=== PATIENT | male | born 1995 | race African-American/Black ===

== ENCOUNTER 2019-09-11 06:14 | Emergency (ER) | payer SELFPAY ==
[2019-09-11 06:16] VITALS: BP 180/107; PULSE 83; RESP 16; TEMP 37.1; O2SAT 99
--- NOTE | 2019-09-11 06:46 | ED.GENADULT ---
HPI - General Adult General Chief complaint: Ear Stated complaint: sore throat/ ear pain/ headache Time Seen by Provider: 09/11/19 06:20 History of Present Illness HPI narrative: Patient is a 23 y/o male complaining of sore pain and ear pain for about 6 days. He sore throat pain is more on the right side and rates it as 7/10. The sorethroat is worsened by swallowing. He took Tylenol which did not provide much relief. He denies any fever or cough. MD complaint: sorethroat Related Data Allergies Allergy/AdvReac Type Severity Reaction Status Date / Time No Known Allergies Allergy Unverified 07/10/19 09:45 Review of Systems Constitutional: Constitutional: Denies chills, Denies fever(s), Denies headache(s) and Denies weakness Eyes: Eyes: Denies blurry vision ENT: Reports headache(s), Denies neck pain and Reports sore throat Cardiovascular: Cardiovascular: Denies chest pain and Denies dyspnea Respiratory: Respiratory: Denies cough and Denies dyspnea Gastrointestinal: Gastrointestinal: Denies abdominal pain, Denies diarrhea, Denies nausea and Denies vomiting Genitourinary: Genitourinary: Denies hematuria and Denies dysuria Musculoskeletal: Musculoskeletal: Denies back pain and Denies neck pain Neurologic: Denies headache(s) and Denies weakness [facility] Social History Social History Smoking status: Never smoker Gender identity (if verbalized by the patient): Male Exam Const: General: no acute distress and well developed Orientation/consciousness: oriented to person, oriented to place, oriented to time and patient oriented x3 HENMT: Head: normocephalic Ears: external ears normal and TM's normal bilaterally General nose exam: Normal external nose present Throat: posterior oropharynx abnormal (posterior pharyngeal erythema) and no peritonsillar masses Eyes: General: appearance normal, both eyes and all related structures Conjunctivae: conjunctivae normal Neck: Neck: normal visual inspection and full ROM Chest: Chest palpation & inspection: normal inspection of the chest and no tenderness Resp: Effort & Inspection: normal respiratory effort Auscultation: clear to auscultation bilaterally Cardio: Rate: regular rate Rhythm: regular rhythm GI: GI Palp: No abdominal tenderness and Yes Soft to palpation Skin: General skin exam: normal color and turgor normal Neuro: General: oriented to person, oriented to place, oriented to time and patient oriented x3 Cognition (Neuro): normal cognition Extrem: General: normal to inspection, full ROM and no pedal edema Psych: Appearance: grossly normal Mental Status: mental status grossly normal Affect: normal affect Course Reevaluation(s) Reevaluation #1: Advised patient to have labs done. Patient refused. Also offered patient meds for HTN, but patient refused. He states that he will follow up with a docor. Date: 09/11/19 Time: 06:55 Vital Signs Vital signs: Vital Signs Temperature 37.1 C 09/11/19 06:16 Pulse Rate 83 09/11/19 06:16 Respiratory Rate 16 09/11/19 06:16 Blood Pressure 180/107 H 09/11/19 06:16 Pulse Oximetry 99 09/11/19 06:16 Temperature 37.1 C 09/11/19 06:16 Pulse Rate 83 09/11/19 06:16 Respiratory Rate 16 09/11/19 06:16 Blood Pressure 180/107 H 09/11/19 06:16 Pulse Oximetry 99 09/11/19 06:16 Medical Decision Making Vital Signs Vital Signs: Vital Signs Temperature 37.1 C 09/11/19 06:16 Pulse Rate 83 09/11/19 06:16 Respiratory Rate 16 09/11/19 06:16 Blood Pressure 180/107 H 09/11/19 06:16 Pulse Oximetry 99 09/11/19 06:16 Temperature 37.1 C 09/11/19 06:16 Pulse Rate 83 09/11/19 06:16 Respiratory Rate 16 09/11/19 06:16 Blood Pressure 180/107 H 09/11/19 06:16 Pulse Oximetry 99 09/11/19 06:16 Lab Data Labs: Influenza A Screen Negative Reference Range: Negative Influenza B Screen Negative Refer
[2019-09-11 07:15] VITALS: BP 173/104; PULSE 85; RESP 16; TEMP 36.7; O2SAT 100
== END 2019-09-11 07:18 | disposition home or self-care (01) ==
PROVIDERS: Emergency Provider Emergency Medicine
DX: J02.0 Streptococcal pharyngitis (principal); I10 Essential (primary) hypertension
CPT/HCPCS: 87804; 87880; 99283

== ENCOUNTER 2021-05-04 22:00 | Emergency (ER) | payer SELFPAY ==
[2021-05-04 22:26] VITALS: BP 186/87; PULSE 64; RESP 16; TEMP 36.7; O2SAT 100
[2021-05-04 23:46] LABS: Add Urine Microscopic? YES; Appearance Urine Cloudy (Clear); Bilirubin Urine Negative (Negative); Color Urine Amber (Yellow); Glucose Urine UA Negative (Negative); Ketones Urine Trace mg/dL (Negative); Leukocyte Esterase Ur 2+ LEU/UL (Negative); Mucus Urine Heavy /lpf; Nitrate Urine Negative (Negative); Protein Urine 1+ mg/dL (Negative); WBC Urine >75 /hpf
[2021-05-04 23:48] LABS: Blood Urine Negative (Negative); Specific Grav Ur 1.033 (1.001-1.035)
[2021-05-04] MEDS: DOXYCYCLINE HYCLATE 100 MG TABLET PO (23:52)
[2021-05-04] MEDS: cefTRIAXone 1 GM VIAL 0.5 GM IM (23:52)
--- NOTE | 2021-05-05 01:11 | ED.MALEGU ---
HPI - Male Genitourinary General Chief complaint: Urogenital-Male Stated complaint: UTI Time Seen by Provider: 05/04/21 23:17 History of Present Illness HPI Narrative: Patient is a 25-year-old male who presents ER with concerns for STD. Last unprotected sex was early last month. Over the last 3 days he has developed drainage from the tip of his penis as well as dysuria. No pain around his testicles. No sores along the penile shaft or head. No additional concerns. Related Data Allergies Allergy/AdvReac Type Severity Reaction Status Date / Time No Known Allergies Allergy Verified 05/04/21 23:05 Review of Systems Constitutional: Constitutional: Denies chills and Denies fever(s) Genitourinary: Genitourinary: Denies genital lesions, Reports dysuria, Reports penile discharge, Denies testicular pain and Reports urinary frequency Musculoskeletal: Musculoskeletal: Denies back pain and Denies muscle cramps PMFSH Past Medical History Medical History (Updated 05/05/21 @ 01:12 by Suraj Quinones MD) Asthma Otitis media Surgical History Surgical History No history of previous surgery Social History Social History Smoking status: Never smoker Gender identity (if verbalized by the patient): Male Exam Narrative: GENERAL: Well-appearing, well-nourished, and in no acute distress. HEAD: Normocephalic, atraumatic. : Normal-appearing external genitalia, urethral discharge noted, no testicular tenderness or swelling. EXTREMITIES: Normal range of motion. No edema. SKIN: Warm, dry, no rash. NEURO: Alert and oriented x3. PSYCH: Normal mood and affect. Course Course Emergency Course: Educated about STI. Educated about protected sex. Discussed need contact partner and verbalized understanding. Vital Signs Vital signs: Vital Signs Temperature 98.0 F 05/04/21 22:26 Pulse Rate 64 05/04/21 22:26 Respiratory Rate 16 05/04/21 22:26 Blood Pressure 186/87 H 05/04/21 22:26 Pulse Oximetry 100 05/04/21 22:26 Temperature 98.0 F 05/04/21 22:26 Pulse Rate 64 05/04/21 22:26 Respiratory Rate 16 05/04/21 22:26 Blood Pressure 186/87 H 05/04/21 22:26 Pulse Oximetry 100 05/04/21 22:26 MDM - Male Genitourinary Lab Data Labs: Lab Results 05/04/21 05/04/21 Range/Units 23:08 23:36 Urine Color Kelli (Yellow) Urine Appearance Cloudy H (Clear) Urine pH 5.0 (5.0-9.0) Ur Specific [place] 1.033 (1.001-1.035) Urine Protein 1+ H (Negative) mg/dL Urine Glucose (UA) Negative (Negative) mg/dL Urine Ketones Trace (Negative) mg/dL Ur Blood (Man) Negative (Negative) Urine Nitrate Negative (Negative) Urine Bilirubin Negative (Negative) Urine Urobilinogen 2.0 H (<2.0) mg/dL Leukocyte Esterase Rfl 2+ H (Negative) MARY/UL Urine RBC 11-20 H (0-2) /hpf Urine WBC >75 H /hpf Urine Mucus Heavy H /lpf C.trachomatis RNA (TMA) Pending N.gonorrhoeae RNA (TMA) Pending Discharge Plan Discharge Clinical Impression: STI (sexually transmitted infection) Patient Disposition: Home, Self-Care Condition: Stable Instructions: Antibiotic Form, Sexually Transmitted Diseases (ED) Additional Instructions: Return the ER if you have fever over 100.4 ?F, you cannot urinate, you have chest pain or shortness of breath, you have additional concerns. Take the full course of antibiotics. Make sure to contact your partner and inform them they need to be treated for sexually transmitted infection. Prescriptions: New doxycycline hyclate 100 mg capsule 100 mg PO DAILY Qty: 14 RF: 0 No Action ibuprofen [IBU] 600 mg tablet 600 mg PO TID PRN (Reason: fever or pain) Qty: 7 RF: 0 fluticasone propionate [Flonase Allergy Relief] 50 mcg/actuation spray,suspension 2 spray NASAL DAILY Qty: 9.9 RF: 0 montelukast [Singulair] 10 mg tablet 10 mg
[2021-05-05] MEDS: LIDOCAINE HCL 1% LOCAL INJ 20 ML VIAL 2.1 ML XX (01:24)
== END 2021-05-05 01:15 | disposition home or self-care (01) ==
PROVIDERS: General Practice; Emergency Provider Emergency Medicine
DX: A64 Unspecified sexually transmitted disease (principal); J45.909 Unspecified asthma, uncomplicated
CPT/HCPCS: 81001; 87086; 87491; 87591; 96372; 99283; A9270; J0696

== ENCOUNTER 2021-06-27 17:32 | Emergency (ER) | payer SELFPAY ==
[2021-06-27 17:34] VITALS: BP 152/108; PULSE 100; RESP 14; TEMP 37.1; O2SAT 96
--- NOTE | 2021-06-27 18:51 | PC.NURSE ---
patient refused covid test. states takes to long to get results
--- NOTE | 2021-06-27 20:11 | ED.FEVER ---
HPI - Fever General Chief Complaint: Fever Stated Complaint: fever Time Seen by Provider: 06/27/21 18:23 Source: patient Mode of arrival: ambulatory Limitations: no limitations History of Present Illness HPI Narrative: Patient is 25-year-old male presented with chief complaint of body aches and slightly elevated temperatures for himself of 99.9 ?F. 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 Patient reports that his last test was 1 week ago and was negative. Patient states that he has asthma but he has not had any shortness of breath or chest pain. Patient states that he did not receive his flu vaccination. Patient has not had nausea, vomiting, abdominal pain, diarrhea or any other symptoms. Related Data Allergies Allergy/AdvReac Type Severity Reaction Status Date / Time No Known Allergies Allergy Verified 05/04/21 23:05 Review of Systems Review of Systems: CONSTITUTIONAL: Reports low-grade fever and body aches denies chills, or sweats. EYES: Denies visual changes, redness, or discharge. ENT: Denies rhinorrhea, congestion, sore throat, or otalgia. CARDIOVASCULAR: Denies chest pain, palpitations, or edema. RESPIRATORY: Denies cough or dyspnea. GASTROINTESTINAL: Denies abdominal pain, nausea, vomiting, or diarrhea. GENITOURINARY: Denies dysuria or hematuria. SKIN: Denies rash or itching. MUSCULOSKELETAL: Denies back pain, joint pain, or myalgia. NEUROLOGIC: Denies headache, numbness, dizziness, or weakness. PSYCHIATRIC: Denies anxiety or depression. [facility] Past Medical History Medical History (Updated 06/27/21 @ 19:17 by Arya Reynoso PA-C) Asthma Otitis media Surgical History Surgical History No history of previous surgery Social History Social History Smoking status: Never smoker Gender identity (if verbalized by the patient): Male Exam Narrative: GENERAL: Well-appearing, well-nourished, and in no acute distress. Nontoxic in appearance. HEAD: Normocephalic, atraumatic. EYES: PERRLA and EOMI. CHEST: Clear to auscultation. No respiratory distress. No wheezes rales or rhonchi HEART: Regular rate and rhythm. No murmur heard. Normal peripheral pulses. EXTREMITIES: Normal range of motion. No edema. SKIN: Warm, dry, no rash. NEURO: No focal deficits. Alert and oriented x3. PSYCH: Normal mood and affect. Course Vital Signs Vital signs: Vital Signs Temperature 98.8 F 06/27/21 17:34 Pulse Rate 100 06/27/21 17:34 Respiratory Rate 14 06/27/21 17:34 Blood Pressure 152/108 H 06/27/21 17:34 Pulse Oximetry 96 06/27/21 17:34 Temperature 98.8 F 06/27/21 17:34 Pulse Rate 100 06/27/21 17:34 Respiratory Rate 14 06/27/21 17:34 Blood Pressure 152/108 H 06/27/21 17:34 Pulse Oximetry 96 06/27/21 17:34 MDM - Fever MDM Narrative Medical decision making narrative: Patient not denies any pain. Patient not having any shortness of breath or chest pain. Patient does not have any wheezing. Patient declines Covid testing as he said the results take too long to come back. Flu and strep are negative. Instructed to quarantine and follow up with pcp for further evaluation. RTER instructions given. Differential Diagnosis Differential diagnosis: Likely cellulitis, fever of unknown origin, gastroenteritis, community acquired pneumonia, pyelonephritis, viral infection, sepsis, influenza and other (Covid, strep pharyngitis, asthma exacerbation) Lab Data Labs: Influenza A Screen Negative Reference Range: Negative Influenza B Screen Negative Reference Range: Negative Strep Screen Presumptive Negative *(Reference Range: Negative)* Discharge Plan Discharge Clinical Impression: Viral infecti
== END 2021-06-27 19:24 | disposition home or self-care (01) ==
PROVIDERS: Emergency Provider Emergency Medicine
DX: B34.9 Viral infection, unspecified (principal); J45.909 Unspecified asthma, uncomplicated
CPT/HCPCS: 87081; 87804; 87880; 99283